=== PATIENT | female | born 1990 | race Caucasian/White ===

== ENCOUNTER 2018-07-22 16:15 | Emergency (ER) | payer SELFPAY ==
[~2018-07-22] VITALS: Ht 170.2 cm; Wt 64.0 kg
[2018-07-22 16:57] VITALS: BP 126/89
[2018-07-22] MEDS ORDERED: HYDROcodone/APAP 5/325 TABLET PO ONE (17:30)
[2018-07-22] MEDS ORDERED: HYDROcodone/APAP 5/325 TABLET ONE (17:35)
--- NOTE | 2018-07-22 18:35 | NUR ---
Discharge instructions discussed with patient including when to return to emergency department, patient verbalizes understanding. Prescriptions provided to patient with instruction for use. Patient ambulates with steady gait to discharge desk in no acute distress.
== END 2018-07-22 18:38 | disposition home or self-care (01) ==
LOC: ED 18:29
DX: S62.316A Displaced fracture of base of fifth metacarpal bone, right hand, initial encounter for closed fracture (principal); F17.210 Nicotine dependence, cigarettes, uncomplicated; X58.XXXA Exposure to other specified factors, initial encounter; Y93.89 Activity, other specified; Y92.89 Other specified places as the place of occurrence of the external cause; Y99.8 Other external cause status
CPT/HCPCS: 29125; 99283

== ENCOUNTER 2018-09-01 17:06 | Emergency (ER) | payer MEDICAID ==
[~2018-09-01] VITALS: Ht 170.2 cm; Wt 64.0 kg
[2018-09-01 17:24] VITALS: BP 111/76
== END 2018-09-01 17:38 | disposition home or self-care (01) ==
LOC: ED 17:35
DX: Z46.89 Encounter for fitting and adjustment of other specified devices (principal)
CPT/HCPCS: 99281

== ENCOUNTER 2018-10-05 12:04 | Emergency (ER) | payer MEDICAID ==
[~2018-10-05] VITALS: Ht 170.2 cm; Wt 63.0 kg
[2018-10-05] MEDS ORDERED: ONDANSETRON ODT 4 MG ONE (12:12)
[2018-10-05] MEDS ORDERED: ONDANSETRON ODT 4 MG PO ONE (12:30)
[2018-10-05 12:57] LABS: BASOPHILS # (AUTO) 0.02 x10^3/uL (0-0.1); BASOPHILS % (AUTO) 0 % (0-1); EOSINOPHILS # (AUTO) 0.18 x10^3/uL (0-0.4); EOSINOPHILS % (AUTO) 3 % (1-7); LYMPHOCYTES # (AUTO) 2.73 x10^3/uL (1-3.4); LYMPHOCYTES % (AUTO) 40 % (22-44); MD NO; MEAN CORPUSCULAR HEMOGLOBIN 32.2 pg (27.0-34.8); MEAN CORPUSCULAR HGB CONC 33.2 g/dL (32.4-35.8); MEAN CORPUSCULAR VOLUME 96.8 fL (80-100); MEAN PLATELET VOLUME 8.1 fL (7.4-10.4); MONOCYTES # (AUTO) 0.44 x10^3/uL (0.2-0.8); MONOCYTES % (AUTO) 6 % (2-9); NEUTROPHILS # (AUTO) 3.55 x10^3/uL (1.8-6.8); NEUTROPHILS % (AUTO) 51 % (42-75); PLATELET COUNT 294 x10^3/uL (130-400); RED CELL DISTRIBUTION WIDTH 14.4 % (9.6-15.2)
[2018-10-05 13:08] LABS: ANION GAP 6 mmol/L (5-15); CALCIUM 8.4 mg/dL (8.5-10.1); CHLORIDE 113 mmol/L (98-107); CREATININE 0.82 mg/dL (0.55-1.02)
--- NOTE | 2018-10-05 13:38 | NUR ---
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
--- NOTE | 2018-10-05 13:41 | NUR ---
Pt presents for SOB, cough, nausea, and vomiting. Pt states vomiting 3 times last 24 hours. Subjective fevers at home. dry cough.
[2018-10-05] MEDS ORDERED: DEXAMETHASONE 4 MG TABLET PO ONE (14:00)
[2018-10-05] MEDS ORDERED: DEXAMETHASONE 4 MG TABLET ONE (14:04)
[2018-10-05 14:09] LABS: MICROSCOPIC AUTO
[2018-10-05 14:11] LABS: CULTURE INDICATED? NO
[2018-10-05 14:49] VITALS: BP 133/87
== END 2018-10-05 14:50 | disposition home or self-care (01) ==
LOC: ED 14:02
DX: J20.9 Acute bronchitis, unspecified (principal); R11.2 Nausea with vomiting, unspecified; F17.200 Nicotine dependence, unspecified, uncomplicated
CPT/HCPCS: 36415; 71046; 80048; 81001; 82040; 84703; 85025; 99284; Q0162